=== PATIENT | male | born 1950 | race Caucasian/White ===

== ENCOUNTER 2017-12-30 19:38 | Inpatient (IN) | payer MEDICARE ==
--- NOTE | 2017-12-30 20:39 | US ---
EXAMINATION TYPE: US venous doppler duplex LE LT DATE OF EXAM: 12/30/2017 8:29 PM COMPARISON: US 11/17/2014 CLINICAL HISTORY: Left leg Pain. History of DVT left leg in . Currently taking blood thinner s SIDE PERFORMED: Left TECHNIQUE: The lower extremity deep venous system is examined utilizing real time linear array sonog rafael with graded compression, doppler sonography and color-flow sonography. VESSELS IMAGED: External Iliac Vein (EIV) Common Femoral Vein Deep Femoral Vein Greater Saphenous Vein * Femoral Vein Popliteal Vein Small Saphenous Vein * Proximal Calf Veins (* superficial vessels) Left Leg: Positive for DVT from the left femoral vein to the left popliteal vein. There is some thre anival flow visualized within the mid femoral vein and the popliteal vein, however, there is lack of com plete compression. IMPRESSION: Positive study for deep venous thrombosis extending from the left femoral vein to the le ft popliteal vein. As compared to the prior ultrasound study of 11/17/2014 there is also a component of chronic deep venous thrombosis.
[2017-12-30] MEDS ORDERED: HEPARIN SODIUM,PORCINE 5,000 UNIT/ML 1 ML VIAL IV PRN (20:52)
[2017-12-30] MEDS ORDERED: SODIUM CHLORIDE 0.9% 1,000 ML IV ONE (20:52)
[2017-12-30] MEDS ORDERED: HEPARIN SODIUM,PORCINE 10,000 UNIT/ML 1 ML VIAL IV ONE (20:52)
--- NOTE | 2017-12-30 20:52 | ED ---
General Adult HPI - General Chief complaint: Extremity Injury, Lower Stated complaint: Leg pain Time Seen by Provider: 12/30/17 19:48 Source: patient, family, RN notes reviewed, old records reviewed Mode of arrival: ambulatory Limitations: no limitations - History of Present Illness Initial comments: This is a 67-year-old male to the ER for evaluation. Patient resents today for evaluation of leg pain. Significant left lower extremity pain and swelling. Tenderness, calf tenderness and tenderness into his groin. Patient has history of DVT, history of protein C deficiency. Patient has history of multiple blood clots and PE, patient is currently Xarelto been taking it as directed. Denies any other injury - Related Data Home Medications Medication Instructions Recorded Confirmed Cinnamon Bark [Cinnamon] 500 mg PO DAILY 12/30/17 12/31/17 Finasteride [Proscar] 5 mg PO DAILY 12/30/17 12/31/17 Fish Oil/Dha/Epa [Fish Oil 1,200 1 cap PO DAILY 12/30/17 12/31/17 mg Fish Oil] Lisinopril [Zestril] 2.5 mg PO DAILY 12/30/17 12/31/17 Rivaroxaban [Xarelto] 20 mg PO DAILY 12/30/17 12/31/17 Turmeric Root Extract [Turmeric] 500 mg PO DAILY 12/30/17 12/31/17 metFORMIN HCL 1,000 mg PO BID 12/30/17 12/31/17 Atorvastatin [Lipitor] 10 mg PO DAILY 12/31/17 12/31/17 Cholecalciferol (Vitamin D3) 2,000 unit PO DAILY 12/31/17 12/31/17 [Vitamin D3] Super B Complex 1 tab PO DAILY 12/31/17 12/31/17 Previous Rx's Medication Instructions Recorded rOPINIRole HCL [Requip] 0.25 mg PO HS #30 tablet 12/31/17 Allergies Allergy/AdvReac Type Severity Reaction Status Date / Time No Known Allergies Allergy Verified 12/31/17 12:41 Review of Systems ROS Statement: Those systems with pertinent positive or pertinent negative responses have been documented in the HPI. ROS Other: All systems not noted in ROS Statement are negative. Past Medical History Past Medical History: Diabetes Mellitus, Deep Vein Thrombosis (DVT), Hypertension History of Any Multi-Drug Resistant Organisms: None Reported Past Surgical History: Joint Replacement, Orthopedic Surgery Past Psychological History: No Psychological Hx Reported Smoking Status: Never smoker Past Alcohol Use History: Occasional Past Drug Use History: None Reported - Past Family History Father Additional Family Medical History / Comment(s): aortic aneurysm Mother Additional Family Medical History / Comment(s): arthritis General Exam - General Exam Comments Initial Comments: Left lower extremity edema and tenderness Limitations: no limitations General appearance: alert, in no apparent distress Head exam: Present: atraumatic, normocephalic, normal inspection Eye exam: Present: normal appearance, PERRL, EOMI. Absent: scleral icterus, conjunctival injection, periorbital swelling ENT exam: Present: normal exam, mucous membranes moist Neck exam: Present: normal inspection. Absent: tenderness, meningismus, lymphadenopathy Respiratory exam: Present: normal lung sounds bilaterally. Absent: respiratory distress, wheezes, rales, rhonchi, stridor Cardiovascular Exam: Present: regular rate, normal rhythm, normal heart sounds. Absent: systolic murmur, diastolic murmur, rubs, gallop, clicks GI/Abdominal exam: Present: soft, normal bowel sounds. Absent: distended, tenderness, guarding, rebound, rigid Extremities exam: Present: normal inspection, full ROM, normal capillary refill. Absent: tenderness, pedal edema, joint swelling, calf tenderness Back exam: Present: normal inspection Neurological exam: Present: alert, oriented X3, CN II-XII intact Psychiatric exam: Present: normal affect, normal mood Skin exam: Present: warm, dry, intact, normal color. Absent: rash Course Vital Signs 12/30/17 12/30/17 19:42 22:14 Temperature 98.1 F 97.9 F Pulse Rate 79 80 Respiratory 18 17 Rate Blood Pressure 146/77 168/71 O2 Sat by Pulse 97 100 Oximetry Medical Decision Making - Medical Decision Making 67 male with positive left lower extremity DVT history of protein C. Patient was on anticoagulation taking appropriately. Patient be admitted for high-dose heparin therapy - Lab Data Result diagrams: 12/31/17 03:04 12/30/17 21:30 Lab Results 12/30/17 12/30/17 12/30/17 Range/Units 21:30 21:30 21:30 WBC 5.6 (3.8-10.6) k/uL RBC 4.24 L (4.30-5.90) m/uL Hgb 12.1 L (13.0-17.5) gm/dL Hct 35.8 L (39.0-53.0) % MCV 84.6 (80.0-100.0) fL MCH 28.5 (25.0-35.0) pg MCHC 33.7 (31.0-37.0) g/dL RDW 12.5 (11.5-15.5) % Plt Count 169 (150-450) k/uL Neutrophils % 66 % Lymphocytes % 20 % Monocytes % 8 % Eosinophils % 2 % Basophils % 0 % Neutrophils # 3.7 (1.3-7.7) k/uL Lymphocytes # 1.1 (1.0-4.8) k/uL Monocytes # 0.5 (0-1.0) k/uL Eosinophils # 0.1 (0-0.7) k/uL Basophils # 0.0 (0-0.2) k/uL PT 11.4 (9.0-12.0) sec INR 1.2 H (<1.2) APTT 27.4 (22.0-30.0) sec Sodium 138 (137-145) mmol/L Potassium 4.3 (3.5-5.1) mmol/L Chloride 106 (98-107) mmol/L Carbon Dioxide 25 (22-30) mmol/L Anion Gap 7 mmol/L BUN 18 (9-20) mg/dL Creatinine 0.90 (0.66-1.25) mg/dL Est GFR (CKD-EPI)AfAm >90 (>60 ml/min/1.73 sqM) Est GFR (CKD-EPI)NonAf 89 (>60 ml/min/1.73 sqM) Glucose 132 H (74-99) mg/dL Calcium 9.3 (8.4-10.2) mg/dL Total Bilirubin 0.5 (0.2-1.3) mg/dL AST 28 (17-59) U/L ALT 33 (21-72) U/L Alkaline Phosphatase 58 (38-126) U/L Total Protein 6.1 L (6.3-8.2) g/dL Albumin 4.0 (3.5-5.0) g/dL 12/31/17 12/31/17 Range/Units 03:04 03:04 WBC 4.7 (3.8-10.6) k/uL RBC 4.06 L (4.30-5.90) m/uL Hgb 11.9 L (13.0-17.5) gm/dL Hct 34.8 L (39.0-53.0) % MCV 85.6 (80.0-100.0) fL MCH 29.2 (25.0-35.0) pg MCHC 34.2 (31.0-37.0) g/dL RDW 12.5 (11.5-15.5) % Plt Count 158 (150-450) k/uL Neutrophils % 53 % Lymphocytes % 33 % Monocytes % 9 % Eosinophils % 2 % Basophils % 1 % Neutrophils # 2.5 (1.3-7.7) k/uL Lymphocytes # 1.5 (1.0-4.8) k/uL Monocytes # 0.4 (0-1.0) k/uL Eosinophils # 0.1 (0-0.7) k/uL Basophils # 0.0 (0-0.2) k/uL PT 10.8 (9.0-12.0) sec INR 1.1 (<1.2) APTT 106.3 H* (22.0-30.0) sec Sodium (137-145) mmol/L Potassium (3.5-5.1) mmol/L Chloride (98-107) mmol/L Carbon Dioxide (22-30) mmol/L Anion Gap mmol/L BUN (9-20) mg/dL Creatinine (0.66-1.25) mg/dL Est GFR (CKD-EPI)AfAm (>60 ml/min/1.73 sqM) Est GFR (CKD-EPI)NonAf (>60 ml/min/1.73 sqM) Glucose (74-99) mg/dL Calcium (8.4-10.2) mg/dL Total Bilirubin (0.2-1.3) mg/dL AST (17-59) U/L ALT (21-72) U/L Alkaline Phosphatase (38-126) U/L Total Protein (6.3-8.2) g/dL Albumin (3.5-5.0) g/dL - Radiology Data Radiology results: report reviewed (Ultrasound left lower Shorty positive for DVT), image reviewed Disposition Clinical Impression: Left leg DVT Disposition: ADMITTED IP TO THIS HOSP Condition: Fair Is patient prescribed a controlled substance at d/c from ED?: No
[2017-12-30] MEDS ORDERED: HEPARIN SOD,PORK IN 0.45% NACL 25,000 UNIT in 0.45% NACL 1 500ML.BAG IV SCH (21:00)
[2017-12-30 21:42] LABS: Basophils % (A) 0 %; Eosinophils # (A) 0.1 k/uL (0-0.7); Eosinophils % (A) 2 %; HCT 35.8 % (39.0-53.0); HGB 12.1 gm/dL (13.0-17.5); Lymphocytes # (A) 1.1 k/uL (1.0-4.8); Lymphocytes % (A) 20 %; MCH 28.5 pg (25.0-35.0); MCHC 33.7 g/dL (31.0-37.0); MCV 84.6 fL (80.0-100.0); Monocytes # (A) 0.5 k/uL (0-1.0); Monocytes % (A) 8 %; Neutrophils # (A) 3.7 k/uL (1.3-7.7); Neutrophils % (A) 66 %; Platelet Count 169 k/uL (150-450); RBC 4.24 m/uL (4.30-5.90); RDW 12.5 % (11.5-15.5); WBC 5.6 k/uL (3.8-10.6)
[2017-12-30 21:50] LABS: INR 1.2 (<1.2); Partial Thromboplastin Time 27.4 sec (22.0-30.0); Prothrombin Time 11.4 sec (9.0-12.0)
[2017-12-30 21:52] LABS: ALT 33 U/L (21-72); AST 28 U/L (17-59); Alkaline Phosphatase 58 U/L (38-126); Anion Gap 7 mmol/L; Blood Urea Nitrogen 18 mg/dL (9-20); Carbon Dioxide 25 mmol/L (22-30); Chloride 106 mmol/L (98-107); Glucose 132 mg/dL (74-99); Potassium 4.3 mmol/L (3.5-5.1); Sodium 138 mmol/L (137-145); Total Bilirubin 0.5 mg/dL (0.2-1.3); Total Protein 6.1 g/dL (6.3-8.2)
[2017-12-30 22:00] LABS: Calcium 9.3 mg/dL (8.4-10.2)
[2017-12-30 22:59] VITALS: BMI 27.9
[2017-12-30 23:05] VITALS: TEMP 97.4
[2017-12-31 03:32] LABS: Basophils % (A) 1 %; Eosinophils # (A) 0.1 k/uL (0-0.7); Eosinophils % (A) 2 %; HCT 34.8 % (39.0-53.0); HGB 11.9 gm/dL (13.0-17.5); Lymphocytes # (A) 1.5 k/uL (1.0-4.8); Lymphocytes % (A) 33 %; MCH 29.2 pg (25.0-35.0); MCHC 34.2 g/dL (31.0-37.0); MCV 85.6 fL (80.0-100.0); Monocytes # (A) 0.4 k/uL (0-1.0); Monocytes % (A) 9 %; Neutrophils # (A) 2.5 k/uL (1.3-7.7); Neutrophils % (A) 53 %; Platelet Count 158 k/uL (150-450); RBC 4.06 m/uL (4.30-5.90); RDW 12.5 % (11.5-15.5); WBC 4.7 k/uL (3.8-10.6)
[2017-12-31 04:22] LABS: INR 1.1 (<1.2); Prothrombin Time 10.8 sec (9.0-12.0)
[2017-12-31 04:35] LABS: Partial Thromboplastin Time 106.3 sec (22.0-30.0)
[2017-12-31 06:00] VITALS: BP 135/76; PULSE 72; RESP 16
[2017-12-31] MEDS ORDERED: APIXABAN 5 MG TAB PO SCH (09:15)
--- NOTE | 2017-12-31 10:37 | P.DS ---
Providers Date of admission: 12/31/17 09:03 Attending physician: Wali Qureshi Primary care physician: Lisa Castorena [facility] Course: As mentioned in HPI Patient Condition at Discharge: Fair Plan - Discharge Summary Discharge Rx Participant: Yes New Discharge Prescriptions: New rOPINIRole HCL [Requip] 0.25 mg PO HS #30 tablet No Action Cinnamon Bark [Cinnamon] 500 mg PO DAILY B Complex-Vit C-Vit E-Zinc [Z-Bec] 1 tab PO DAILY D3/Folic Acid/Collagen,Hydroly [Cyfolex Capsule] 50 mcg PO DAILY Fish Oil/Dha/Epa [Fish Oil 1,200 mg Fish Oil] 1 each PO DAILY Rivaroxaban [Xarelto] 20 mg PO DAILY Finasteride [Proscar] 5 mg PO DAILY metFORMIN HCL 1,000 mg PO BID Lisinopril [Zestril] 2.5 mg PO DAILY Turmeric Root Extract [Turmeric] 500 mg PO DAILY Discharge Medication List B Complex-Vit C-Vit E-Zinc [Z-Bec] 1 tab PO DAILY 12/30/17 [History] Cinnamon Bark [Cinnamon] 500 mg PO DAILY 12/30/17 [History] D3/Folic Acid/Collagen,Hydroly [Cyfolex Capsule] 50 mcg PO DAILY 12/30/17 [ History] Finasteride [Proscar] 5 mg PO DAILY 12/30/17 [History] Fish Oil/Dha/Epa [Fish Oil 1,200 mg Fish Oil] 1 each PO DAILY 12/30/17 [History] Lisinopril [Zestril] 2.5 mg PO DAILY 12/30/17 [History] Rivaroxaban [Xarelto] 20 mg PO DAILY 12/30/17 [History] Turmeric Root Extract [Turmeric] 500 mg PO DAILY 12/30/17 [History] metFORMIN HCL 1,000 mg PO BID 12/30/17 [History] rOPINIRole HCL [Requip] 0.25 mg PO HS #30 tablet 12/31/17 [Rx] Follow up Appointment(s)/Referral(s): Carlos Selby MD [STAFF PHYSICIAN] - 1 Week Lisa Castorena III, MD [Primary Care Provider] - 3 Days Discharge Disposition: HOME SELF-CARE
--- NOTE | 2017-12-31 10:37 | P.HPIM ---
History of Present Illness 67-year-old pleasant gentleman with history of DVT in 2015 in the left leg extending from common femoral to popliteal came in with complaints of spasms in the left leg patient underwent a repeat DVT which showed the same blood clot but because of compressibility it was believed to have a new acute DVT because of which patient was admitted. Although symptomatically patient the symptoms are not really consistent with DVT. Patient appears to have restless leg syndrome or post-thrombotic pain for which patient will use Requip and/or compression socks respectively. I do not believe patient has failure of Xarelto , although patient will benefit from second opinion from a food cooking machine operator because of which patient will be referred to Dr. Selby who he has seen in the past. Patient denied any fever chills nausea vomiting. Review of Systems REVIEW OF SYSTEMS: CONSTITUTIONAL: No fever, no malaise, no fatigue. HEENT: No recent visual problems or hearing problems. Denied any sore throat. CARDIOVASCULAR: No chest pain, orthopnea, PND, no palpitations, no syncope. PULMONARY: No shortness of breath, no cough, no hemoptysis. GASTROINTESTINAL: No diarrhea, no nausea, no vomiting, no abdominal pain. Normoactive bowel sounds. NEUROLOGICAL: No headaches, no weakness, no numbness. HEMATOLOGICAL: Denies any bleeding or petechiae. GENITOURINARY: Denies any burning micturition, frequency, or urgency. MUSCULOSKELETAL/RHEUMATOLOGICAL: Denies any joint pain, swelling, or any muscle pain. ENDOCRINE: Denies any polyuria or polydipsia. The rest of the 14-point review of systems is negative. Past Medical History Past Medical History: Diabetes Mellitus, Deep Vein Thrombosis (DVT), Hypertension History of Any Multi-Drug Resistant Organisms: None Reported Past Surgical History: Joint Replacement, Orthopedic Surgery Past Anesthesia/Blood Transfusion Reactions: No Reported Reaction Past Psychological History: No Psychological Hx Reported Smoking Status: Never smoker Past Alcohol Use History: Occasional Past Drug Use History: None Reported - Past Family History Father Additional Family Medical History / Comment(s): aortic aneurysm Mother Additional Family Medical History / Comment(s): arthritis Medications and Allergies Home Medications Medication Instructions Recorded Confirmed Type B Complex-Vit C-Vit E-Zinc [Z-Bec] 1 tab PO DAILY 12/30/17 12/30/17 History Cinnamon Bark [Cinnamon] 500 mg PO DAILY 12/30/17 12/30/17 History D3/Folic Acid/Collagen,Hydroly 50 mcg PO DAILY 12/30/17 12/30/17 History [Cyfolex Capsule] Finasteride [Proscar] 5 mg PO DAILY 12/30/17 12/30/17 History Fish Oil/Dha/Epa [Fish Oil 1,200 1 each PO DAILY 12/30/17 12/30/17 History mg Fish Oil] Lisinopril [Zestril] 2.5 mg PO DAILY 12/30/17 12/30/17 History Rivaroxaban [Xarelto] 20 mg PO DAILY 12/30/17 12/30/17 History Turmeric Root Extract [Turmeric] 500 mg PO DAILY 12/30/17 12/30/17 History metFORMIN HCL 1,000 mg PO BID 12/30/17 12/30/17 History rOPINIRole HCL [Requip] 0.25 mg PO HS #30 tablet 12/31/17 Rx Allergies Allergy/AdvReac Type Severity Reaction Status Date / Time No Known Allergies Allergy Verified 12/30/17 19:46 Physical Exam Vitals: Vital Signs Temp Pulse Pulse Resp BP BP Pulse Ox 12/31/17 05:59 97.4 F L 72 16 135/76 96 12/30/17 22:30 97.4 F L 81 18 144/75 97 12/30/17 22:14 97.9 F 80 17 168/71 100 12/30/17 19:42 98.1 F 79 18 146/77 97 Intake and Output 12/30/17 12/31/17 12/31/17 22:59 06:59 14:59 Intake Total 228.187 Balance 228.187 Intake: Intake, IV Titration 228.187 Amount Heparin Sod,Pork in 0.45% 228.187 NaCl 25,000 unit In 0.45 % NaCl 1 500ml.bag @ 18 UNITS/KG/HR 31.84 mls/hr IV .[id number] [facility] Rx#: [id number] Other: # Voids 2 Weight 88.451 kg PHYSICAL EXAMINATION: GENERAL: The patient is alert and oriented x3, not in any acute distress. Well developed, well nourished. HEENT: Pupils are round and equally reacting to light. EOMI. No scleral icterus. No conjunctival pallor. Normocephalic, atraumatic. No pharyngeal erythema. No thyromegaly. CARDIOVASCULAR: S1 and S2 present. No murmurs, rubs, or gallops. PULMONARY: Chest is clear to auscultation, no wheezing or crackles. ABDOMEN: Soft, nontender, nondistended, normoactive bowel sounds. No palpable organomegaly. MUSCULOSKELETAL: No joint swelling or deformity. EXTREMITIES: No cyanosis, clubbing, or pedal edema. NEUROLOGICAL: Gross neurological examination did not reveal any focal deficits. SKIN: No rashes. Results CBC & Chem 7: 12/31/17 03:04 12/30/17 21:30 Labs: Abnormal Lab Results - Last 24 Hours (Table) 12/30/17 12/30/17 12/30/17 Range/Units 21:30 21:30 21:30 RBC 4.24 L (4.30-5.90) m/uL Hgb 12.1 L (13.0-17.5) gm/dL Hct 35.8 L (39.0-53.0) % INR 1.2 H (<1.2) APTT (22.0-30.0) sec Glucose 132 H (74-99) mg/dL Total Protein 6.1 L (6.3-8.2) g/dL 12/31/17 12/31/17 Range/Units 03:04 03:04 RBC 4.06 L (4.30-5.90) m/uL Hgb 11.9 L (13.0-17.5) gm/dL Hct 34.8 L (39.0-53.0) % INR (<1.2) APTT 106.3 H* (22.0-30.0) sec Glucose (74-99) mg/dL Total Protein (6.3-8.2) g/dL Thrombosis Risk Factor Assmnt - Choose All That Apply Any of the Below Risk Factors Present?: No Assessment and Plan Plan: -Pain in bilateral legs predominantly in the left leg: Probably restless leg syndrome or posttraumatic pain further management as mentioned above -Type 2 diabetes mellitus -Hypertension -History of previous DVT and PE in the past is on anti-correlation as mentioned above Patient will be discharged today
== END 2017-12-31 11:46 | disposition home or self-care (01) | DRG 57 ==
LOC: EC 19:38 → 5MS5E 20:52 → OBSVTOIN 12-31 09:03
PROVIDERS: ADMIT Hospitalist; ATTEND Hospitalist
DX: G25.81 Restless legs syndrome (principal); D68.59 Other primary thrombophilia; M79.605 Pain in left leg; M79.604 Pain in right leg; E11.9 Type 2 diabetes mellitus without complications; I10 Essential (primary) hypertension; Z79.01 Long term (current) use of anticoagulants; Z79.899 Other long term (current) drug therapy; Z79.84 Long term (current) use of oral hypoglycemic drugs; Z86.718 Personal history of other venous thrombosis and embolism
CPT/HCPCS: 36415; 80053; 85025; 85610; 85730; 96365; 96376; 99284

== ENCOUNTER → 2018-02-27 | Outpatient (CLI) | payer MEDICARE ==
--- NOTE | 2018-02-27 10:50 | US ---
"EXAMINATION TYPE: US venous doppler duplex LE DATE OF EXAM: 02/27/2018 9:13 AM COMPARISON: Previous exam 12/30/2017 CLINICAL HISTORY: I82.5Z9 deep vein thrombosis of bilateral. History of DVT left leg. Patient on Xare lto for 3 years SIDE PERFORMED: left TECHNIQUE: The lower extremity deep venous system is examined utilizing real time linear array sonog rafael with graded compression, doppler sonography and color-flow sonography. VESSELS IMAGED: External Iliac Vein (EIV) Common Femoral Vein Deep Femoral Vein from a Doppler duplex Greater Saphenous Vein * Femoral Vein Popliteal Vein Small Saphenous Vein * Proximal Calf Veins (* superficial vessels) No abnormal luminal echoes are noted in the deep veins of the right lower extremity, the veins are co mpressible and patent. Left lower extremity shows low level internal echoes and lack of compressibili ty within the popliteal vein and peripheral femoral vein, lack of color flow. Right Leg: No evidence of DVT Left Leg: Positive for DVT left femoral vein upper extending into left popliteal vein IMPRESSION: Deep venous thrombosis left lower extremity as noted on prior exam. A Red level critical message alert has been initiated for Carlos Selby MD via the [employer] | Crit ical Results System on 02/27/2018 10:47 AM. This message alert has been sent to Carlos Selby MD via the preferences provided by the clinician for the receipt of Radiology Critical Findings. Message ID [id number]."
== END | disposition home or self-care (01) ==
LOC: RADUSWWP 08:44
PROVIDERS: ATTEND Internal Medicine Hematology & Oncology
DX: I82.502 Chronic embolism and thrombosis of unspecified deep veins of left lower extremity (principal)
CPT/HCPCS: 93970

== ENCOUNTER → 2018-09-04 | Outpatient (CLI) | payer MEDICARE ==
--- NOTE | 2018-09-04 14:02 | US ---
EXAMINATION TYPE: US venous doppler duplex LE LT DATE OF EXAM: 09/04/2018 1:47 PM COMPARISON: US dated 02/27/2018, 12/30/2017 and 11/17/2014 CLINICAL HISTORY: I82.5Z9 DEEP VEIN THROMBOSIS OF LE. F/U previous, history of DVT left leg, pt curre ntly on blood thinners SIDE PERFORMED: Left TECHNIQUE: The lower extremity deep venous system is examined utilizing real time linear array sonog rafael with graded compression, doppler sonography and color-flow sonography. VESSELS IMAGED: External Iliac Vein (EIV) Common Femoral Vein Deep Femoral Vein Greater Saphenous Vein * Femoral Vein Popliteal Vein Small Saphenous Vein * Proximal Calf Veins (* superficial vessels) Grayscale, color doppler, spectral doppler imaging performed of the deep veins of the left lower extr emity. Left Leg: DVT within left leg as seen on previous/ Appears to have slight improvement in blood flow from mid fem vein to distal popliteal vein IMPRESSION: Incomplete recanalization of a chronic deep venous thrombosis beginning in the mid left femoral vein extending into the distal popliteal vein appears incompletely occlusive and eccentric.
== END | disposition home or self-care (01) ==
LOC: RADUSWWP 13:24
PROVIDERS: ATTEND Internal Medicine Hematology & Oncology
DX: I82.412 Acute embolism and thrombosis of left femoral vein (principal); I82.432 Acute embolism and thrombosis of left popliteal vein

== ENCOUNTER → 2019-11-11 | Outpatient (CLI) | payer MEDICARE ==
--- NOTE | 2019-11-11 13:55 | US ---
EXAMINATION TYPE: US venous doppler duplex LE LT DATE OF EXAM: 11/11/2019 1:34 PM COMPARISON: NONE CLINICAL HISTORY: 69-year-old male I82.5Z9 Deep vein thrombosis of left lower ext. HX of DVT on blood thinners. SIDE PERFORMED: Left TECHNIQUE: The lower extremity deep venous system is examined utilizing real time linear array sonog rafael with graded compression, doppler sonography and color-flow sonography. FINDINGS: VESSELS IMAGED: External Iliac Vein (EIV) Common Femoral Vein Deep Femoral Vein Greater Saphenous Vein * Femoral Vein Popliteal Vein Small Saphenous Vein * Proximal Calf Veins (* superficial vessels) Left Leg: Clot visualized from mid Femoral Vein down into Popliteal Vein. Some flow visualized with partial compression. Clot is better visualized than previous. IMPRESSION: Exam positive for chronic DVT extending from the mid femoral vein down into the popliteal vein. Clot remains nonocclusive but is better visualized now as compared to 09/04/2018.
== END | disposition home or self-care (01) ==
LOC: RADUSWWP 13:14
PROVIDERS: ATTEND Internal Medicine Hematology & Oncology
DX: I82.512 Chronic embolism and thrombosis of left femoral vein (principal)

== ENCOUNTER → 2021-01-12 | Outpatient (CLI) | payer MEDICARE ==
--- NOTE | 2021-01-12 11:10 | US ---
EXAMINATION TYPE: US venous doppler duplex LE LT DATE OF EXAM: 01/12/2021 9:09 AM COMPARISON: 11/11/2019 CLINICAL HISTORY: 70-year-old male I82.5Z9 Deep vein thrombosis. Known DVT in left leg since 2013, on Xarelto, patient states he gets annual US to assess clot. SIDE PERFORMED: Left TECHNIQUE: The lower extremity deep venous system is examined utilizing real time linear array sonog rafael with graded compression, doppler sonography and color-flow sonography. VESSELS IMAGED: Common Femoral Vein Deep Femoral Vein Greater Saphenous Vein * Femoral Vein Popliteal Vein Small Saphenous Vein * Proximal Calf Veins (* superficial vessels) Left Leg: Again, thrombus noted within left popiteal vein extending up into upper femoral vein. Tota l occlusion of femoral vein with collaterals noted, popiteal vein did not compress fully and had inte rnal echoes but was non occluding with doppler flow detected. IMPRESSION: Redemonstrated left lower extremity DVT, largely chronic extending through the femoral vein into the popliteal vein. There seems to be some progression now with occlusion of the femoral vein and interva l formation of a collateral vein at this level.
== END | disposition home or self-care (01) ==
LOC: RADUSWWP 08:50
PROVIDERS: ATTEND Internal Medicine Hematology & Oncology
DX: I82.5Z2 Chronic embolism and thrombosis of unspecified deep veins of left distal lower extremity (principal)

== ENCOUNTER → 2021-04-13 | Outpatient (CLI) | payer MEDICARE ==
--- NOTE | 2021-04-13 14:11 | US ---
EXAMINATION TYPE: US venous doppler duplex LE LT DATE OF EXAM: 04/13/2021 12:51 PM COMPARISON: 01/12/2021 CLINICAL HISTORY: I82.5Z9 DVT of lower extremities. SIDE PERFORMED: Left TECHNIQUE: The lower extremity deep venous system is examined utilizing real time linear array sonog rafael with graded compression, doppler sonography and color-flow sonography. VESSELS IMAGED: Common Femoral Vein Deep Femoral Vein Greater Saphenous Vein * Femoral Vein Popliteal Vein Small Saphenous Vein * Proximal Calf Veins (* superficial vessels) Left Leg: Again, thrombus noted within left popiteal vein extending up into upper femoral vein. Tota l occlusion of femoral vein with collaterals noted, popiteal vein did not compress fully and had inte rnal echoes but was non occluding with doppler flow detected. IMPRESSION: 1. Popliteal deep venous thrombosis extending into the femoral vein
== END | disposition home or self-care (01) ==
LOC: RADUSWWP 12:24
PROVIDERS: ATTEND Internal Medicine Hematology & Oncology
DX: I82.432 Acute embolism and thrombosis of left popliteal vein (principal)

== ENCOUNTER → 2021-10-26 | Outpatient (CLI) | payer MEDICARE ==
--- NOTE | 2021-10-26 14:30 | US ---
EXAMINATION TYPE: US venous doppler duplex LE LT DATE OF EXAM: 10/26/2021 1:42 PM COMPARISON: 04/13/2021 CLINICAL HISTORY: 71-year-old male I82.5Z9 Deep vein thrombosis. Hx DVT. Patient is on Eliquis. SIDE PERFORMED: Left TECHNIQUE: The lower extremity deep venous system is examined utilizing real time linear array sonog rafael with graded compression, doppler sonography and color-flow sonography. VESSELS IMAGED: Common Femoral Vein Deep Femoral Vein Greater Saphenous Vein * Femoral Vein Popliteal Vein Small Saphenous Vein * Proximal Calf Veins Posterior tibial vein Peroneal vein (* superficial vessels) Left Leg: Internal echoes seen within prox femoral vein down through the mid popliteal vein. The uppe r, mid, and lower femoral vein are noncompressible. There is nonocclusive clot within the upper and m id popliteal vein. The distal popliteal vein is patent. Collateral vein seen near femoral vein with c olor defect suggesting small amount of clot. The overall appearance is not significantly changed. IMPRESSION: Overall similar appearance to the exam from 04/13/2021 with occlusive clot involving the femoral vein and nonocclusive clot extending down into the upper and mid popliteal veins.
== END | disposition home or self-care (01) ==
LOC: RADUSWWP 12:52
PROVIDERS: ATTEND Internal Medicine Hematology & Oncology
DX: I82.5Z9 Chronic embolism and thrombosis of unspecified deep veins of unspecified distal lower extremity (principal)

== ENCOUNTER 2022-04-10 22:12 | Emergency (ER) | payer MEDICARE ==
[2022-04-10 22:21] VITALS: RESP 20; TEMP 98
--- NOTE | 2022-04-10 23:01 | US ---
EXAMINATION TYPE: US venous doppler duplex LE LT DATE OF EXAM: 04/10/2022 10:53 PM COMPARISON: NONE CLINICAL HISTORY: pain- hx of chronic dvt. Pain left leg. History of DVT. patient on blood thinner SIDE PERFORMED: left TECHNIQUE: The lower extremity deep venous system is examined utilizing real time linear array sonog rafael with graded compression, doppler sonography and color-flow sonography. VESSELS IMAGED: Common Femoral Vein Deep Femoral Vein Greater Saphenous Vein * Femoral Vein Popliteal Vein Small Saphenous Vein * Proximal Calf Veins (* superficial vessels) Left Leg: +positive for DVT left femoral vein upper extending into popliteal vein IMPRESSION: There is evidence of acute deep vein thrombosis in the left femoral vein extending from t he mid thigh to the popliteal vein. There is thrombus in the popliteal vein.
--- NOTE | 2022-04-10 23:18 | ED ---
General Adult HPI - General Chief complaint: Extremity Problem,Nontraumatic Stated complaint: blood clot leg/pain Time Seen by Provider: 04/10/22 23:10 Source: patient, RN notes reviewed, old records reviewed Mode of arrival: ambulatory Limitations: no limitations - History of Present Illness Initial comments: 71-year-old male with known DVT in the left leg which is been present for many years presents with pain and swelling to the left leg. He is on Xarelto he's been compliant with his medications. No chest pain or dyspnea. The patient did do some yard work which seemed to worsen his pain. Relieved with rest. No history of peripheral vascular disease. He does follow with hematology. - Related Data Home Medications Medication Instructions Recorded Confirmed Cinnamon Bark [Cinnamon] 500 mg PO DAILY 12/30/17 12/31/17 Finasteride [Proscar] 5 mg PO DAILY 12/30/17 12/31/17 Fish Oil/Dha/Epa [Fish Oil 1,200 1 cap PO DAILY 12/30/17 12/31/17 mg Fish Oil] Rivaroxaban [Xarelto] 20 mg PO DAILY 12/30/17 12/31/17 Turmeric Root Extract [Turmeric] 500 mg PO DAILY 12/30/17 12/31/17 lisinopriL [Zestril] 2.5 mg PO DAILY 12/30/17 12/31/17 metFORMIN HCL [Glucophage] 1,000 mg PO BID 12/30/17 12/31/17 Atorvastatin [Lipitor] 10 mg PO DAILY 12/31/17 12/31/17 Cholecalciferol (Vitamin D3) 2,000 unit PO DAILY 12/31/17 12/31/17 [Vitamin D3] Super B Complex 1 tab PO DAILY 12/31/17 12/31/17 Previous Rx's Medication Instructions Recorded rOPINIRole HCL [Requip] 0.25 mg PO HS #30 tablet 12/31/17 Allergies Allergy/AdvReac Type Severity Reaction Status Date / Time No Known Allergies Allergy Verified 04/10/22 22:21 Review of Systems ROS Statement: Those systems with pertinent positive or pertinent negative responses have been documented in the HPI. ROS Other: All systems not noted in ROS Statement are negative. Past Medical History Past Medical History: Diabetes Mellitus, Deep Vein Thrombosis (DVT), Hyperten alison History of Any Multi-Drug Resistant Organisms: None Reported Past Surgical History: Joint Replacement, Orthopedic Surgery Past Anesthesia/Blood Transfusion Reactions: No Reported Reaction Past Psychological History: No Psychological Hx Reported Smoking Status: Never smoker Past Alcohol Use History: Occasional Past Drug Use History: None Reported - Past Family History Father Additional Family Medical History / Comment(s): aortic aneurysm Mother Additional Family Medical History / Comment(s): arthritis General Exam Limitations: no limitations General appearance: alert, in no apparent distress Head exam: Present: atraumatic, normocephalic Eye exam: Present: normal appearance, PERRL ENT exam: Present: normal exam Neck exam: Present: normal inspection. Absent: tenderness, meningismus Respiratory exam: Present: normal lung sounds bilaterally. Absent: respiratory distress, wheezes Cardiovascular Exam: Present: regular rate, normal rhythm GI/Abdominal exam: Present: soft. Absent: distended, tenderness, guarding Extremities exam: Present: normal inspection, normal capillary refill, other. Absent: calf tenderness (Pedal pulses 2+) Neurological exam: Present: alert, oriented X3, CN II-XII intact. 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 Distal pulses are intact, there is no swelling, no cellulitis, relatively unremarkable exam. No chest pain or dyspnea. Patient is appropriately anticoagulated. He should follow-up with his primary care physician. Patient reassured. Disposition Clinical Impression: Left leg DVT Disposition: HOME SELF-CARE Condition: Good Instructions (If sedation given, give patient instructions): Deep Vein Thrombosis (ED) Is patient prescribed a controlled substance at d/c from ED?: No Referrals: Lisa Castorena III, MD [Primary Care Provider] - 1-2 days Time of Disposition: 23:18
[2022-04-11 00:47] VITALS: BP 150/77; PULSE 74
== END 2022-04-10 23:26 | disposition home or self-care (01) ==
LOC: EC 22:12
DX: I82.402 Acute embolism and thrombosis of unspecified deep veins of left lower extremity (principal); E11.9 Type 2 diabetes mellitus without complications; I10 Essential (primary) hypertension; Z79.84 Long term (current) use of oral hypoglycemic drugs; Z79.811 Long term (current) use of aromatase inhibitors; Z79.899 Other long term (current) drug therapy
CPT/HCPCS: 99283

== ENCOUNTER → 2022-10-25 | Outpatient (CLI) | payer MEDICARE ==
--- NOTE | 2022-10-25 12:04 | CA ---
Exercise Nuclear Stress Test Report Name: Khurram Tafoya Exam Date: 10/25/2022 09:46 Exam Location: [facility] Stress Ht (in): 70 Wt (lb): 192 BSA: 2.05 Ordering Phys: Lisa Castorena MD Referring Phys: yobani, Technologist: CHAU,, Age: 72 Gender: M : 1950 Procedure CPT: Indications: E11.9, R07.89 ICD-10 Codes: Patient History: Chest pain, hypertension Medications: Meds past 24 hrs: Pretest Chest Pain: STRESS TEST Braulio Protocol Exercise Duration (min:sec): 07:[address] Depressions (mm): Angina Score: Waddell Score: Resting HR (bpm): 62 Peak HR (bpm): 150 Resting BP (mmHg): 150 / 82 Peak BP (mmHg): 193 / 59 MPHR: 149 Target HR: 127 % MPHR: 101 METS: 8.9 Total Dose: Peak Dose: Atropine: Double Product: 62673 BP Response: Stress Termination: TARGET HR REACHED/MAX EXERTION Stress Symptoms: NO SYMPTOMS Stress Summary: ECG ANALYSIS Resting ECG: Stress ECG: CONCLUSIONS Baseline EKG revealed normal sinus rhythm with minor right ventricular conduction delay with a normal QRS duration. Patient walked on a standard Braulio protocol for 7 minutes and achieved a maximum heart rate of 147 bpm which is available 85% of predicted maximal heart rate. Patient did not have any angina. There was no arrhythmia and there were no EKG changes to indicate ischemia. By EKG criteria this is a negative stress test with fair exercise capacity. The nuclear scan results which are more pertinent will be reported by the radiologist Dr. Quinton Lucas MD (Electronically Signed) Final Date: 25 Oct 2022 12:02
--- NOTE | 2022-10-25 15:59 | NM ---
EXAMINATION TYPE: NM stress cardiolite complete DATE OF EXAM: 10/25/2022 COMPARISON: NONE CLINICAL INDICATION: Male, 72 years old with history of E11.9, R07.89; TECHNIQUE: After the intravenous administration of 10.2 mCi Tc 99m Sestamibi - Rest images obtained 45 minutes post injection. The patient exercised using a DIANE protocol and 1 minute prior to peak exercise was injected with 25.6 mCi Tc 99m Sestamibi - Stress images obtained 10 minutes post injecti on. FINDINGS: Targeted heart rate (127 bpm) was achieved during performance of the study (148 BPM achieved). Total exercise time 7 minutes. Review of stress and rest SPECT images demonstrates no distinct perfusion abnormality. Gated analysi s shows normal wall motion with an estimated left ventricular ejection fraction of 64 %. TID is calc ulated at 0.87, within normal limits. IMPRESSION: No scintigraphic evidence for reversible ischemia
== END ==
LOC: RADNMMAIN 08:18
PROVIDERS: ATTEND Family Medicine
DX: E11.9 Type 2 diabetes mellitus without complications (principal); R07.89 Other chest pain
CPT/HCPCS: 93017; 78452; A9500